=== PATIENT | female | born 1995 | race Caucasian/White ===

== ENCOUNTER 2020-03-09 10:52 | Emergency (ER) | payer OTHER, BC ==
[~2020-03-09] VITALS: Ht 152.4 cm; Wt 84.8 kg
[2020-03-09 11:05] VITALS: Ht 152.4 cm; Wt 84.8 kg
[2020-03-09 11:39] VITALS: BP 128/80
== END 2020-03-09 11:39 | disposition home or self-care (01) ==
LOC: ED 10:52
DX: S30.0XXA Contusion of lower back and pelvis, initial encounter (principal); F17.210 Nicotine dependence, cigarettes, uncomplicated; E66.9 Obesity, unspecified; Z68.36 Body mass index [BMI] 36.0-36.9, adult; Z98.890 Other specified postprocedural states; V49.9XXA Car occupant (driver) (passenger) injured in unspecified traffic accident, initial encounter; Y93.I9 Activity, other involving external motion; Y92.413 State road as the place of occurrence of the external cause; Y99.8 Other external cause status
CPT/HCPCS: 99406